=== PATIENT | female | born 1970 | race African-American/Black ===

== ENCOUNTER 2021-12-31 09:27 | Day surgery (SDC) | payer OTHER ==
[~2021-12-31] VITALS: Ht 172.7 cm; Wt 107.0 kg
[2021-12-31] MEDS ORDERED: BUPIVACAINE-MPF 0.25% 30 ML VIAL INJ ONE (10:18)
[2021-12-31] MEDS ORDERED: LIDOCAINE/EPI 1% 1:100000 20 ML VIAL INJ ONE (10:18)
[2021-12-31] MEDS ORDERED: SEVOFLURANE 250 ML BTL INH ONE (11:00)
[2021-12-31] MEDS ORDERED: fentaNYL citrate 0.05 MG/ML VIAL ONE (11:00)
[2021-12-31] MEDS ORDERED: HYDROGEN PEROXIDE 3% 240 ML BTL TP ONE (12:02)
[2021-12-31] MEDS ORDERED: SUCCINYLCHOLINE CHLORIDE 200 MG/10 ML VIAL IVP ONE (12:03)
[2021-12-31] MEDS ORDERED: GELATIN SPONGE 100 1 SPG TP ONE (12:03)
[2021-12-31] MEDS ORDERED: PROPOFOL 200 MG/20 ML VIAL IV ONE ×2 (12:03)
[2021-12-31] MEDS ORDERED: KETOROLAC 30 MG/ML VIAL ONE (12:14)
[2021-12-31] MEDS ORDERED: LACTATED RINGERS 1,000 ML IV SCH (12:45)
[2021-12-31] MEDS ORDERED: METOCLOPRAMIDE 10 MG/2 ML INJ VIAL IVP PRN (12:45)
[2021-12-31] MEDS ORDERED: LABETALOL 20 MG/4 ML VIAL IVP PRN (12:45)
[2021-12-31] MEDS: hydrALAZINE 20 MG/ML VIAL IVP PRN ×4 (12:53→13:45)
[2021-12-31] MEDS: HYDROmorphone 1 MG/ML AMP IVP PRN ×4 (13:09→13:42)
[2021-12-31] MEDS ORDERED: HYDROmorphone PFS 2 MG/ML SYR ONE (13:11)
[2021-12-31] MEDS: ONDANSETRON 4 MG/2 ML VIAL ONE ×2 (15:26→15:30)
[2021-12-31] MEDS ORDERED: ONDANSETRON 4 MG/2 ML VIAL ONE (15:28)
== END 2021-12-31 19:20 | disposition home or self-care (01) ==
LOC: MMU 09:27 → MDS 09:27
PROVIDERS: ATTEND Surgery
DX: K64.0 First degree hemorrhoids (principal); K64.1 Second degree hemorrhoids; K64.8 Other hemorrhoids; I10 Essential (primary) hypertension; G40.909 Epilepsy, unspecified, not intractable, without status epilepticus; F32.9 Major depressive disorder, single episode, unspecified; E66.01 Morbid (severe) obesity due to excess calories; Z20.822 Contact with and (suspected) exposure to COVID-19; Z79.899 Other long term (current) drug therapy
CPT/HCPCS: 46260; 71045; 81025; 87426; 88304; 93005; J0330; J0360; J1170; J1885; J2001; J2405; J2704; J3010; J3490